=== PATIENT | male | born 1990 | race Caucasian/White ===

== ENCOUNTER 2019-01-15 03:53 | Emergency (ER) | payer MEDICAID, OTHER ==
[~2019-01-15 03:53] MED LIST: CLON1TAB PO; SERT50TA PO
--- NOTE | 2019-01-15 04:06 | NUR ---
Called for triage, no answer.
--- NOTE | 2019-01-15 04:18 | NUR ---
Called for triage, no answer.
--- NOTE | 2019-01-15 04:25 | NUR ---
Called for triage, no answer.
== END 2019-01-15 04:47 | disposition left against medical advice (07) ==
LOC: ER 03:53
DX: Z53.21 Procedure and treatment not carried out due to patient leaving prior to being seen by health care provider (principal)

== ENCOUNTER 2019-05-26 17:45 | Emergency (ER) | payer OTHER ==
[~2019-05-26] VITALS: Ht 190.5 cm; Wt 156.0 kg
[2019-05-26 17:55] VITALS: BP 142/93
--- NOTE | 2019-05-26 18:51 | NUR ---
Irma dooley in EDM - 05/26/19 at 1914 by NICOL LT BETZAIDA W/OUT BEING SEEN BY ED PROVIDER.
== END 2019-05-26 19:18 | disposition left against medical advice (07) ==
LOC: ER 17:49
DX: Z53.21 Procedure and treatment not carried out due to patient leaving prior to being seen by health care provider (principal); R07.9 Chest pain, unspecified; M54.2 Cervicalgia; R11.0 Nausea; K21.9 Gastro-esophageal reflux disease without esophagitis